=== PATIENT | male | born 1990 | race Caucasian/White ===

== ENCOUNTER 2019-10-15 09:40 | Emergency (ER) | payer OTHER ==
[~2019-10-15] VITALS: Ht 182.9 cm; Wt 106.1 kg
[~2019-10-15 09:40] MED LIST: TUSSI PRES-B L120 M1 PO; ZITHROMAX TRI-500 MG PO
== END 2019-10-15 11:06 | disposition home or self-care (01) ==
LOC: ER 09:40
DX: L73.8 Other specified follicular disorders (principal)